=== PATIENT | male | born 1975 | race Caucasian/White ===

== ENCOUNTER → 2017-04-22 | Outpatient (CLI) | payer OTHER | END | disposition home or self-care (01) | LOC: C.LAB 08:44 | PROVIDERS: ATTEND Family Medicine | DX: R19.7 Diarrhea, unspecified (principal) ==

== ENCOUNTER 2018-03-10 19:24 | Emergency (ER) | payer OTHER ==
[~2018-03-10] VITALS: Ht 177.8 cm; Wt 94.4 kg
[2018-03-10 19:27] VITALS: Ht 177.8 cm; Wt 94.4 kg
[2018-03-10 20:05] LABS: BASO % 0.7 %; BASO ABS # 0.09 K/uL (0-0.2); HEMATOCRIT 48.8 % (42-52); HEMOGLOBIN 16.6 g/dL (14.0-18.0); IG# 0.02 K/uL (0.00-0.02); LYMPH % 32.5 %; LYMPH ABS # 4.05 K/uL (1.2-3.4); MEAN CELL VOLUME 95.1 fL (80-100); MEAN CORPUSCULAR HEMOGLOBIN 32.4 pg (25-34); MEAN PLATELET VOLUME 10.4 fL (7.4-10.4); MONO % 5.9 %; MONO ABS # 0.74 K/uL (0.11-0.59); NEUT % 56.7 %; NEUT ABS # 7.06 K/uL (1.4-6.5); PLATELET COUNT 296 K/uL (130-400); RED CELL DISTRIBUTION WIDTH CV 13.7 % (11.5-14.5); WHITE BLOOD COUNT 12.46 K/uL (4.8-10.8)
--- NOTE | 2018-03-10 20:16 | EMERGENCY ROOM VISIT NOTE ---
History First contact with patient: 19:45 Chief Complaint: FLANK PAIN Stated Complaint: STOMACH PAIN History of Present Illness The patient is a 42 year old male who presents to the Emergency Room with complaints of left sided flank pain and hematuria starting today. He has never had this before . Pt denies fevers, denies chills. He had a big dinner today. He has never had a kidney stone or a UTI in the past. Never had a prostate issues. There are no clots in the urine, it's just red. He has not changed his diet in any perceptible way. He also have a sense of urgency and goes pee and nothing comes out. There is no penile discharge. No dysuria. He describes his left sided flank pain as 5/10 and constant. He denies that it' s colicky in nature. Pt is sexually active with his fiancee. He has no concerns about STDs. Review of Systems See HPI for pertinent positives and negatives. A total of ten systems were reviewed and were otherwise negative. Constitutional: No fever, No chills ENT: No hearing loss Respiratory: No cough, No sputum, No wheezing, No shortness of breath Cardiovascular: No chest pain Abdomen: No pain, No nausea, No vomiting, No diarrhea, No constipation Musculoskeletal: No joint pain Genitourinary - Male: + hematuria, + urinary urgency, No dysuria, No urinary frequency, No urinary hesitancy, No urinary retention Neurologic: No memory loss Integumentary: No rash Social History Smoking Status: Current Every Day Smoker Alcohol Use: none Marital Status: Occupation Status: employed Current/Historical Medications Scheduled PRN Oxycodone/Acetaminophen 5MG/325MG (Percocet 5MG/325MG), 1 TABLET PO Q6H PRN for Pain Physical Exam Vital Signs Date Time Temp Pulse Resp B/P (MAP) Pulse Ox O2 Delivery O2 Flow Rate FiO2 03/10/18 19:27 36.4 75 18 138/88 96 Room Air Physical Exam Gen: No acute distress. HEENT: Head - normocephalic and atraumatic. Pupils are equal, round, and reactive to light. Extraocular eye muscles are intact and sclera are anicteric. Ears - bilaterally patent canals with noninjected tympanic membranes and no evidence of hemotympanum. Nose - moist nasal mucosa without discharge. Mouth - moist buccal mucosa. Oropharynx is nonerythematous and there is no tonsillar exudate or edema noted. Neck: Supple; no JVD, nuchal rigidity, cervical lymphadenopathy, or auscultated bruits. Heart: Regular rate and rhythm. There is a normal S1 and S2 with no murmurs, clicks, or gallops appreciated. Lungs: Clear to auscultation bilaterally with no wheezes, rales, or rhonchi. Abdomen: Soft, nondistended, with good bowel sounds. There are no palpable pulsatile masses or hepatosplenomegaly. There is no guarding, rigidity, or rebound noted. Left sided CVA tenderness. Tender to deep palpation in the LLQ. Extremities: No evidence of cyanosis, clubbing, or edema. There are easily palpable peripheral pulses. Neuro:The patient is awake and alert, oriented to day, time, and place. Muscle strength is 5/5 in all 4 extremities. The patient has equal judge's clerk strength and equal pedal push and pull. There are no cerebellar signs. Medical Decision & Procedures ER Provider Diagnostic Interpretation: SINGLE VIEW CHEST CLINICAL HISTORY: Left flank pain. FINDINGS: An AP, portable, upright chest radiograph is compared to study dated 02/20/2008. The examination is mildly degraded by portable technique and patient rotation. The cardiomediastinal silhouette is unremarkable. Linear opacities are seen at the right lung base. The lungs and pleural spaces are otherwise clear. No pneumothorax is seen. The bony thorax is grossly intact. IMPRESSION: Linear opacities at the right lung base likely represent platelike atelectasis. Clinical correlation will be required. Laboratory Results 03/10/18 19:39 Red Blood Count 5.13, Mean Corpuscular Volume 95.1, Mean Corpuscular Hemoglobin 32.4, Mean Corpuscular Hemoglobin Concent 34.0, Mean Platelet Volume 10.4, Neutrophils (%) (Auto) 56.7, Lymphocytes (%) (Auto) 32.5, Monocytes (%) (Auto) 5.9, Eosinophils (%) (Auto) 4.0, Basophils (%) (Auto) 0.7, Neutrophils # (Auto) 7.06, Lymphocytes # (Auto) 4.05, Monocytes # (Auto) 0.74, Eosinophils # (Auto) 0.50, Basophils # (Auto) 0.09 8/16/18 19:39 Test 03/10/18 19:39 03/10/18 20:02 03/10/18 20:06 White Blood Count 12.46 K/uL (4.8-10.8) Red Blood Count 5.13 M/uL (4.7-6.1) Hemoglobin 16.6 g/dL (14.0-18.0) Hematocrit 48.8 % (42-52) Mean Corpuscular Volume 95.1 fL (80-100) Mean Corpuscular Hemoglobin 32.4 pg (25-34) Mean Corpuscular Hemoglobin Concent 34.0 g/dl (32-36) Platelet Count 296 K/uL (130-400) Mean Platelet Volume 10.4 fL (7.4-10.4) Neutrophils (%) (Auto) 56.7 % Lymphocytes (%) (Auto) 32.5 % Monocytes (%) (Auto) 5.9 % Eosinophils (%) (Auto) 4.0 % Basophils (%) (Auto) 0.7 % Neutrophils # (Auto) 7.06 K/uL (1.4-6.5) Lymphocytes # (Auto) 4.05 K/uL (1.2-3.4) Monocytes # (Auto) 0.74 K/uL (0.11-0.59) Eosinophils # (Auto) 0.50 K/uL (0-0.5) Basophils # (Auto) 0.09 K/uL (0-0.2) RDW Standard Deviation 48.0 fL (36.4-46.3) RDW Coefficient of Variation 13.7 % (11.5-14.5) Immature Granulocyte % (Auto) 0.2 % Immature Granulocyte # (Auto) 0.02 K/uL (0.00-0.02) Anion Gap 7.0 mmol/L (3-11) Est Creatinine Clear Calc Drug Dose 94.2 ml/min Estimated GFR () 87.4 Estimated GFR (Non- 75.4 BUN/Creatinine Ratio 10.8 (10-20) Calcium Level 8.6 mg/dl (8.5-10.1) Lipase 225 U/L (73-393) Urine Color DK YELLOW Urine Appearance CLOUDY (CLEAR) Urine pH 5.5 (4.5-7.5) Urine Specific [place] 1.030 (1.000-1.030) Urine Protein 1+ (NEG) Urine Glucose (UA) NEG (NEG) Urine Ketones TRACE (NEG) Urine Occult Blood 3+ (NEG) Urine Nitrite NEG (NEG) Urine Bilirubin NEG (NEG) Urine Urobilinogen NEG (NEG) Urine Leukocyte Esterase TRACE (NEG) Urine WBC (Auto) 5-10 /hpf (0-5) Urine RBC (Auto) >30 /hpf (0-4) Urine Hyaline Casts (Auto) 1-5 /lpf (0-5) Urine Epithelial Cells (Auto) 10-20 /lpf (0-5) Urine Bacteria (Auto) NEG (NEG) Bedside Troponin I 0.030 ng/ml (0-0.045) Medications Administered Medications (Trade) Dose Ordered Sig/Rogerio Route Start Time Stop Time Status Last Admin Dose Admin Ketorolac Tromethamine (Toradol Inj) 15 mg NOW STAT IV 03/10/18 21:27 03/10/18 21:29 DC 03/10/18 21:27 15 MG Sodium Chloride 500 ml @ 999 mls/hr Q31M IV 03/10/18 21:30 04/09/18 21:29 03/10/18 21:30 999 MLS/HR Ondansetron HCl (ZOFRAN ODT 4MG Home Pack) 1 homepack UD ONCE PO 03/10/18 21:30 03/10/18 21:31 DC 03/10/18 21:30 1 HOMEPACK ECG Per My Interpretation Indication: other (flank pain) Rate (beats per minute): 64 Rhythm: normal sinus Findings: no acute ischemic change, no ectopy Change: no significant change Medical Decision The patient's care and disposition was discussed with Dr. Guevara, Attending ED Physician. This is a 42M with hematuria and left sided flank pain. Differential diagnosis include UTI, pyelo, pancreatitis, appendicitis, cardiac ischemia, aortic dissection, pulmonary embolism, pneumonia, pneumothorax, musculoskeletal, infections, gastrointestinal, as well as others were entertained. Triage Nursing notes were reviewed. ED Course included an extensive history and physical exam, labs, CT for Stone. 7:45pm - Pt seen and examined at bedside. Case discussed with Dr. Guevara. 9:30pm - Labs and imaging reviewed with patient. 15mg IV Toradol and 500mL of NSS were ordered for the patient. He was advised that he had a non obstructing stone. He was told to watch out for worsening pain or fevers. He will be given a home pack of Zofran and Percocet to take for pain. He is to straight all of his urine and make an appointment with a urologist if he doesn't pass the stone in the next few days. The pt was informed about the findings as listed above. All questions were answered. Return instructions were outlined and the patient was discharged in good condition. The patient was referred to PCP for recheck of the current condition. Head Trauma GCS Score: 15 Impression Primary Impression: Renal colic Departure Information Dispostion Home / Self-Care Condition GOOD Prescriptions Oxycodone/Acetaminophen 5MG/325MG (PERCOCET 5MG/325MG) Tab 1 TABLET PO Q6H Y for Pain, #20 TAB PAIN Prov: Milind Bustos M.D. 03/10/18 Referrals No Doctor, Assigned (PCP) Patient Instructions My [facility] Resident Involvement: Resident Care Provided Care Provided: Adult ED
[2018-03-10 20:22] LABS: CALCIUM 8.6 mg/dl (8.5-10.1); CREATININE 1.19 mg/dl (0.60-1.40); POTASSIUM 3.9 mmol/L (3.5-5.1)
--- NOTE | 2018-03-10 20:58 | DIAGNOSTIC IMAGING REPORT ---
SINGLE VIEW CHEST CLINICAL HISTORY: Left flank pain. FINDINGS: An AP, portable, upright chest radiograph is compared to study dated 02/20/2008. The examination is mildly degraded by portable technique and patient rotation. The cardiomediastinal silhouette is unremarkable. Linear opacities are seen at the right lung base. The lungs and pleural spaces are otherwise clear. No pneumothorax is seen. The bony thorax is grossly intact. IMPRESSION: Linear opacities at the right lung base likely represent platelike atelectasis. Clinical correlation will be required. Electronically signed by: Mauricio Ramírez M.D. 03/10/2018 8:57 PM Dictated Date/Time: 03/10/2018 8:56 PM
[2018-03-10] MEDS ORDERED: KETOROLAC TROMETHAMINE 30 MG/ML VIAL IV STA (21:27)
[2018-03-10] MEDS ORDERED: ONDANSETRON 4MG OD TAB PO PRN (21:30)
[2018-03-10] MEDS: SODIUM CHLORIDE 0.9% 500ML 500 ML IV SCH ×2 (21:30→22:01)
[2018-03-10] MEDS ORDERED: OXYC-57 PO (21:30)
[2018-03-10] MEDS ORDERED: ONDANSETRON HOME PACK 4MG OD TAB PO ONE (21:30)
[2018-03-10] MEDS ORDERED: PERCOCET HOME PACK PO ONE (21:45)
[2018-03-10 22:26] VITALS: BP 132/87; PULSE 72; TEMP 36.4; O2SAT 97
--- NOTE | 2018-03-10 22:43 | DIAGNOSTIC IMAGING REPORT ---
CT SCAN OF THE ABDOMEN AND PELVIS WITHOUT IV CONTRAST CLINICAL HISTORY: Left flank pain. COMPARISON STUDY: Abdominal CT dated 05/06/2007. TECHNIQUE: CT scan of the abdomen and pelvis is performed from the lung bases to the proximal femora. Images are reviewed in the axial, sagittal, and coronal planes. IV contrast was not administered for this examination as per the referring clinician. A dose lowering technique was utilized adhering to the principles of ALARA. CT DOSE: 1412.15 mGy.cm FINDINGS: Lung bases: The heart is normal in size and without pericardial effusion. The lung bases are clear noting bibasilar atelectasis. There is a tiny hiatal hernia. Liver: The unenhanced liver is normal in size, contour, and attenuation. There is no intrahepatic biliary ductal dilatation. Gallbladder: Contracted. Spleen: Normal in size and attenuation. Pancreas: Unremarkable. Adrenal glands: Unremarkable. Kidneys: The unenhanced kidneys are normal in size. There is a 3 mm obstructing calculus at the left vesicoureteral junction seen on image #384. There is an additional 4 mm obstructing calculus in the left proximal ureter at the level of L3 seen on image #209. There is moderate left hydronephrosis, with associated left-sided perinephric stranding and trace fluid. No additional renal calculi are identified in either kidney. There is no evidence of contour deforming renal mass lesion. Abdominal vasculature: The abdominal aorta is normal in course and caliber. Bowel: There is moderate colonic fecal retention. No bowel obstruction is seen. The appendix is well-visualized and normal. Peritoneum: There is no intraperitoneal free air or abdominal ascites. There is a fat-containing umbilical hernia. Lymphadenopathy: None. Pelvic viscera: The prostate gland is mildly enlarged and heterogeneous. The bladder is decompressed and not well evaluated. Skeletal structures: No lytic or blastic lesions are seen. IMPRESSION: 1. There are 4 mm and 3 mm left proximal and distal ureteral calculi as above. These cause moderate left hydronephrosis. 2. No additional calculi are clearly identified in either kidney. 3. Additional findings as above. Electronically signed by: Mauricio Ramírez M.D. 03/10/2018 10:42 PM Dictated Date/Time: 03/10/2018 10:36 PM
--- NOTE | 2018-03-10 23:32 | EMERGENCY ROOM VISIT NOTE ---
History Report prepared by Adri: Maicol Nunez Under the Supervision of: Dr. Pascual Guevara D.O. First contact with patient: 19:45 Chief Complaint: FLANK PAIN Stated Complaint: STOMACH PAIN History of Present Illness The patient is a 42 year old male who presents to the Emergency Room with complaints of left flank pain and hematuria that has been constant and started today. He rates the pain as a 5/10. The patient reports that his urine is orange and that this has never happened before. He is sexually active and denies dysuria, clots, taking medication, or a history of kidney stones. Source of History: patient Onset: Today Position: back (Left flank pain ) Symptom Intensity: 5/10 Timing: constant Associated Symptoms: + urinary symptoms Review of Systems See HPI for pertinent positives & negatives. A total of 10 systems reviewed and were otherwise negative. Family History Patient reports no known family medical history. Social History Smoking Status: Current Every Day Smoker Alcohol Use: none Marital Status: Occupation Status: employed Current/Historical Medications Scheduled PRN Oxycodone/Acetaminophen 5MG/325MG (Percocet 5MG/325MG), 1 TABLET PO Q6H PRN for Pain Allergies Coded Allergies: Cephalexin (Unverified Allergy, Intermediate, SWELLING AND ITCHING, ) Macrolides (Verified Allergy, Mild, 07/01/11) Sulfa Drugs (Verified Allergy, Mild, 07/01/11) Erythromycin (Verified Allergy, hives, 07/01/11) Physical Exam Vital Signs Date Time Temp Pulse Resp B/P (MAP) Pulse Ox O2 Delivery O2 Flow Rate FiO2 03/10/18 22:26 36.4 72 18 132/87 97 03/10/18 19:27 36.4 75 18 138/88 96 Room Air Physical Exam CONSTITUTIONAL/VITAL SIGNS: Reviewed / noted above. GENERAL: Non-toxic in appearance. Afebrile INTEGUMENTARY: Warm, dry, and [place]. HEAD: Normocephalic. EYES: without scleral icterus or trauma. ENT/OROPHARYNX: clear and moist. LYMPHADENOPATHY/NECK: Is supple without lymphadenopathy or meningismus. RESPIRATORY: Lungs clear and equal. CARDIOVASCULAR: Regular rate and rhythm. GI/ABDOMEN: Soft. Tenderness to left upper quadrant. No organomegaly or pulsatile mass. No rebound or guarding. Normal bowel sounds. EXTREMITIES: Warm and well perfused. BACK: Left sided CVA tenderness. NEUROLOGICAL: Intact without focal deficits. PSYCHIATRIC: normal affect. MUSCULOSKELETAL: Normally developed with good muscle tone. Medical Decision & Procedures ER Provider Diagnostic Interpretation: Radiology results as stated below per my review and radiologist interpretation: SINGLE VIEW CHEST CLINICAL HISTORY: Left flank pain. FINDINGS: An AP, portable, upright chest radiograph is compared to study dated 02/20/2008. The examination is mildly degraded by portable technique and patient rotation. The cardiomediastinal silhouette is unremarkable. Linear opacities are seen at the right lung base. The lungs and pleural spaces are otherwise clear. No pneumothorax is seen. The bony thorax is grossly intact. IMPRESSION: Linear opacities at the right lung base likely represent platelike atelectasis. Clinical correlation will be required. Electronically signed by: Mauricio Ramírez M.D. 03/10/2018 8:57 PM Dictated Date/Time: 03/10/2018 8:[address] SCAN OF THE ABDOMEN AND PELVIS WITHOUT IV CONTRAST CLINICAL HISTORY: Left flank pain. COMPARISON STUDY: Abdominal CT dated 05/06/2007. TECHNIQUE: CT scan of the abdomen and pelvis is performed from the lung bases to the proximal femora. Images are reviewed in the axial, sagittal, and coronal planes. IV contrast was not administered for this examination as per the referring clinician. A dose lowering technique was utilized adhering to the principles of ALARA. CT DOSE: 1412.15 mGy.cm FINDINGS: Lung bases: The heart is normal in size and without pericardial effusion. The lung bases are clear noting bibasilar atelectasis. There is a tiny hiatal hernia. Liver: The unenhanced liver is normal in size, contour, and attenuation. There is no intrahepatic biliary ductal dilatation. Gallbladder: Contracted. Spleen: Normal in size and attenuation. Pancreas: Unremarkable. Adrenal glands: Unremarkable. Kidneys: The unenhanced kidneys are normal in size. There is a 3 mm obstructing calculus at the left vesicoureteral junction seen on image #384. There is an additional 4 mm obstructing calculus in the left proximal ureter at the level of L3 seen on image #209. There is moderate left hydronephrosis, with associated left-sided perinephric stranding and trace fluid. No additional renal calculi are identified in either kidney. There is no evidence of contour deforming renal mass lesion. Abdominal vasculature: The abdominal aorta is normal in course and caliber. Bowel: There is moderate colonic fecal retention. No bowel obstruction is seen. The appendix is well-visualized and normal. Peritoneum: There is no intraperitoneal free air or abdominal ascites. There is a fat-containing umbilical hernia. Lymphadenopathy: None. Pelvic viscera: The prostate gland is mildly enlarged and heterogeneous. The bladder is decompressed and not well evaluated. Skeletal structures: No lytic or blastic lesions are seen. IMPRESSION: 1. There are 4 mm and 3 mm left proximal and distal ureteral calculi as above. These cause moderate left hydronephrosis. 2. No additional calculi are clearly identified in either kidney. 3. Additional findings as above. Electronically signed by: Mauricio Ramírez M.D. 03/10/2018 10:42 PM Dictated Date/Time: 03/10/2018 10:36 PM Laboratory Results 03/10/18 19:39 Red Blood Count 5.13, Mean Corpuscular Volume 95.1, Mean Corpuscular Hemoglobin 32.4, Mean Corpuscular Hemoglobin Concent 34.0, Mean Platelet Volume 10.4, Neutrophils (%) (Auto) 56.7, Lymphocytes (%) (Auto) 32.5, Monocytes (%) (Auto) 5.9, Eosinophils (%) (Auto) 4.0, Basophils (%) (Auto) 0.7, Neutrophils # (Auto) 7.06, Lymphocytes # (Auto) 4.05, Monocytes # (Auto) 0.74, Eosinophils # (Auto) 0.50, Basophils # (Auto) 0.09 03/10/18 19:39 Test 03/10/18 19:39 03/10/18 20:02 03/10/18 20:06 White Blood Count 12.46 K/uL (4.8-10.8) Red Blood Count 5.13 M/uL (4.7-6.1) Hemoglobin 16.6 g/dL (14.0-18.0) Hematocrit 48.8 % (42-52) Mean Corpuscular Volume 95.1 fL (80-100) Mean Corpuscular Hemoglobin 32.4 pg (25-34) Mean Corpuscular Hemoglobin Concent 34.0 g/dl (32-36) Platelet Count 296 K/uL (130-400) Mean Platelet Volume 10.4 fL (7.4-10.4) Neutrophils (%) (Auto) 56.7 % Lymphocytes (%) (Auto) 32.5 % Monocytes (%) (Auto) 5.9 % Eosinophils (%) (Auto) 4.0 % Basophils (%) (Auto) 0.7 % Neutrophils # (Auto) 7.06 K/uL (1.4-6.5) Lymphocytes # (Auto) 4.05 K/uL (1.2-3.4) Monocytes # (Auto) 0.74 K/uL (0.11-0.59) Eosinophils # (Auto) 0.50 K/uL (0-0.5) Basophils # (Auto) 0.09 K/uL (0-0.2) RDW Standard Deviation 48.0 fL (36.4-46.3) RDW Coefficient of Variation 13.7 % (11.5-14.5) Immature Granulocyte % (Auto) 0.2 % Immature Granulocyte # (Auto) 0.02 K/uL (0.00-0.02) Anion Gap 7.0 mmol/L (3-11) Est Creatinine Clear Calc Drug Dose 94.2 ml/min Estimated GFR () 87.4 Estimated GFR (Non- 75.4 BUN/Creatinine Ratio 10.8 (10-20) Calcium Level 8.6 mg/dl (8.5-10.1) Lipase 225 U/L (73-393) Urine Color DK YELLOW Urine Appearance CLOUDY (CLEAR) Urine pH 5.5 (4.5-7.5) Urine Specific [place] 1.030 (1.000-1.030) Urine Protein 1+ (NEG) Urine Glucose (UA) NEG (NEG) Urine Ketones TRACE (NEG) Urine Occult Blood 3+ (NEG) Urine Nitrite NEG (NEG) Urine Bilirubin NEG (NEG) Urine Urobilinogen NEG (NEG) Urine Leukocyte Esterase TRACE (NEG) Urine WBC (Auto) 5-10 /hpf (0-5) Urine RBC (Auto) >30 /hpf (0-4) Urine Hyaline Casts (Auto) 1-5 /lpf (0-5) Urine Epithelial Cells (Auto) 10-20 /lpf (0-5) Urine Bacteria (Auto) NEG (NEG) Bedside Troponin I 0.030 ng/ml (0-0.045) Laboratory results as stated above per my review. Medications Administered Medications (Trade) Dose Ordered Sig/Rogerio Route Start Time Stop Time Status Last Admin Dose Admin Ketorolac Tromethamine (Toradol Inj) 15 mg NOW STAT IV 03/10/18 21:27 03/10/18 21:29 DC 03/10/18 21:27 15 MG Sodium Chloride 500 ml @ 999 mls/hr Q31M IV 03/10/18 21:30 03/10/18 23:05 DC 03/10/18 21:30 999 MLS/HR Ondansetron HCl (ZOFRAN ODT 4MG Home Pack) 1 homepack UD ONCE PO 03/10/18 21:30 03/10/18 21:31 DC 03/10/18 21:30 1 HOMEPACK Oxycodone/ Acetaminophen (Percocet 5/ 325MG Home Pack) 1 homepack UD ONCE PO 03/10/18 21:45 03/10/18 22:10 DC 03/10/18 21:45 1 HOMEPACK ECG Per My Interpretation Indication: abdominal pain Rate (beats per minute): 64 Rhythm: normal sinus Findings: no ectopy, other (No ST elevation) ED Course 1950: Previous medical records were reviewed. The patient was evaluated in room B8. A complete history and physical examination was performed. 2126: Toradol 15mg IV 0: Zofran ODT 4mg 1 home pack, Zofran Odt 4mg PO, Sodium Chloride 500 ml @ 999mls/hr IV 0: I reevaluated the patient 2144: Percocet 5/325mg 1 home pack PO 0: On reevaluation, the patient is resting in bed. I discussed the results and findings with the patient. He verbalized agreement of the treatment plan. He was discharged home. Medical Decision Differential Diagnosis UTI, kidney stone, STD, cystitis, pyelonephritis, pancreatitis, constipation, gas pains, shingles, and prostatitis This is a 42-year-old male who presents to the ED with a chief complaint of flank pain. The patient was seen in conjunction with the resident. Please see that note for additional information. The patient was diagnosed with 2 stones in the kidneys. One stone was in the UVJ and the other one was more proximal. They were 3 and 4 cm. The patient did not have any evidence of infection. He was treated with IV Toradol as well as some fluids and IV Zofran. He was given a Percocet prescription. And a home pack. He will strain his urine for stone. He was given urology for follow-up with the stone is not passed. He is felt to be stable for discharge. Medication Reconcilliation Current Medication List: was personally reviewed by me Blood Pressure Screening Patient's blood pressure: Elevated blood pressure Blood pressure disposition: Elevated BP felt to be situational Impression Primary Impression: Renal colic Scribe Attestation The scribe's documentation has been prepared under my direction and personally reviewed by me in its entirety. I confirm that the note above accurately reflects all work, treatment, procedures, and medical decision making performed by me. Departure Information Dispostion Home / Self-Care Prescriptions Oxycodone/Acetaminophen 5MG/325MG (PERCOCET 5MG/325MG) Tab 1 TABLET PO Q6H Y for Pain, #20 TAB PAIN Prov: Milind Bustos M.D. 03/10/18 Referrals No Doctor, Assigned (PCP) Patient Instructions My [facility]
--- NOTE | 2018-03-14 17:23 | Pharmacy Progress Note ---
ED Pharmacist Progress Note Date of Service: Mar 14, 2018. [facility] pharmacy called earlier today stating they could not fill RX for Percocet as Dr Milind Bustos does not have a MACKENZIE number. The pharmacist rejected the Rx. Dr Bustos had not had Dr Guevara sign the Rx as well with his MACKENZIE number. Reviewed case w/ Dr Issa Mullen. Dr Mullen agreed to send new Rx for pain medication to [facility].
[2018-03-14] MEDS ORDERED: OXYC-57 PO (17:46)
--- NOTE | 2018-03-14 17:48 | EMERGENCY ROOM VISIT NOTE ---
ED Visit Note I did receive word that patient had a history of renal colic for nonobstructing stones and had attempted to fill his Percocet prescription but was unable to do so as the resident physician had prescribed in the medication and there was not an appropriate MACKENZIE number attached. I did review the patient's visit note. I also did review the [employer] which did not show any substances within the [facility] within the last year. I did eap counselor the old prescription and transmitted a new prescription for the same quantity duration and rate at which he should take the medicine.
== END 2018-03-10 22:27 | disposition home or self-care (01) ==
LOC: C.EDB 19:25
DX: N23 Unspecified renal colic (principal); F17.200 Nicotine dependence, unspecified, uncomplicated